=== PATIENT | female | born 1970 | race African-American/Black ===

== ENCOUNTER 2016-09-25 12:45 | Day surgery (SDC) | payer OTHER ==
[~2016-09-25 12:45] MED LIST: AMLODIPINE BESY10 MG PO; AMOX TR-K CLV1 EAC3 PO; B-COMPLEX WIT400 MCG PO; CALCITRIOL0.5 MCG PO; CEFTAZIDIME2 GM IV; CIPRO500 MG PO; ELIQUIS2.5 MG PO; ELIQUIS5 MG PO; FOLIC ACID1 MG PO; HYDREA500 MG PO; HYDROXYUREA500 MG PO; KADIAN30 MG PO; KEPPRA500 MG PO; LEVAQUIN500 MG PO; LOPRESSOR50 MG PO; METOPROLOL TART50 MG PO; NEPHRO-VITE,1 TABLET PO; NORVASC10 MG PO; OXYCODONE HCL; OXYCODONE HCL30 MG PO; OXYCONTIN20 MG PO; PROTONIX40 MG PO; RANITIDINE HCL150 MG PO; ROCALTROL0.5 MCG PO; ROXICODONE5 MG PO; SENSIPAR30 MG PO; TUMS X-STR300 MG PO; TUMS500 MG PO; VIBRAMYCIN100 MG PO; VITAMIN E1000 UNI1 PO; ZANTAC150 MG PO; ZOFRAN; ZOFRAN ODT8 MG PO; ZOFRAN8 MG PO
[2016-09-25] MEDS ORDERED: ZOFRAN8 MG PO (14:45)
[2016-09-25] MEDS ORDERED: KADIAN30 MG PO (14:46)
[2016-09-25] MEDS ORDERED: OXYCONTIN20 MG PO (14:47)
[2016-09-25 16:26] LABS: METH RESISTANT S AUREUS PCR NEGATIVE (NEGATIVE)
[2016-09-25 16:48] LABS: PROBE CHECK PASS; SPECIMEN PROCESSING CONTROL PASS
== END 2016-09-25 19:25 | disposition home or self-care (01) ==
LOC: CATH 12:45
PROVIDERS: Surgery
DX: T82.868A Thrombosis due to vascular prosthetic devices, implants and grafts, initial encounter (principal); Y83.2 Surgical operation with anastomosis, bypass or graft as the cause of abnormal reaction of the patient, or of later complication, without mention of misadventure at the time of the procedure; Z99.2 Dependence on renal dialysis; N18.6 End stage renal disease
CPT/HCPCS: 87641; C1725; C1757; C1769; C1874; C1894; C2628; J0690; J1644; J2250; J3010; S0020

== ENCOUNTER 2016-10-26 18:45 | Inpatient (IN) | payer OTHER ==
[~2016-10-26] VITALS: Ht 165.1 cm; Wt 57.4 kg
[2016-10-26 20:00] VITALS: BP 107/63
[2016-10-26 21:00] VITALS: BP 107/63
[2016-10-26 23:55] VITALS: BP 114/65
[2016-10-27 03:58] VITALS: BP 100/60
[2016-10-27 07:34] VITALS: BP 135/70
[2016-10-27 07:35] LABS: ANION GAP 11 MEQ/L (2-14); CHLORIDE 99 MEQ/L (99-109); GFR ESTIMATE (CALCULATED) 15 mL/min/; GLUCOSE 104 mg/dL (70-99); POTASSIUM 4.3 MEQ/L (3.7-5.4); SAMPLE HEMOLYSIS CHECK 0; SAMPLE ICTERIC CHECK 0; SAMPLE LIPEMIA CHECK 0; SODIUM 137 MEQ/L (136-147); UREA NITROGEN (BUN) 26 mg/dL (9-23)
[2016-10-27 07:57] LABS: EOSINOPHIL (%) 0.2 % (0-5); HEMATOCRIT 17.3 % (36.0-46.0); IMMATURE GRANULOCYTE (%) 0.3 % (0.0-0.7); IMMATURE GRANULOCYTE COUNT 0.1 K/uL; LYMPHOCYTE COUNT 1.7 K/uL (1.0-2.8); MCH 31.3 PG (29.0-34.0); MCHC 32.4 G/DL (30.0-36.0); MCV 96.6 FL (83-99); MEAN PLAT.VOLUME 10.3 uM^3 (9.5-12.4); MONOCYTE (%) 6.1 % (3-12); MONOCYTE COUNT 1.1 K/uL (0-0.8); NEUTROPHIL (%) 83.7 % (45-76); NEUTROPHIL COUNT 14.8 K/uL (1.8-6.4); NRBC (%) 0.3 /100 WBC (0-0); PLATELET COUNT 445 K/uL (156-360); RBC DIS.WIDTH-SD 74.2 % (39-53); RED BLOOD COUNT 1.79 M/uL (3.80-5.20); WHITE BLOOD COUNT 17.6 K/uL (4.1-10.2)
[2016-10-27 11:16] VITALS: BP 138/69
[2016-10-27] MEDS ORDERED: MARINOL2.5 M1 PO ×2 (15:33→15:36)
[2016-10-27 16:07] VITALS: BP 107/62
[2016-10-27 19:30] VITALS: BP 108/63
[2016-10-27 23:55] VITALS: BP 111/69
[2016-10-28] VITALS (9 sets, daily range): BP systolic 105–181; BP diastolic 61–85
[2016-10-28 08:42] LABS: EOSINOPHIL (%) 0.3 % (0-5); EOSINOPHIL COUNT 0.1 K/uL (0-0.3); IMMATURE GRANULOCYTE (%) 0.5 % (0.0-0.7); IMMATURE GRANULOCYTE COUNT 0.1 K/uL; LYMPHOCYTE COUNT 1.9 K/uL (1.0-2.8); MCH 32.3 PG (29.0-34.0); MCHC 34.4 G/DL (30.0-36.0); MCV 93.8 FL (83-99); MEAN PLAT.VOLUME 10.5 uM^3 (9.5-12.4); MONOCYTE (%) 4.9 % (3-12); MONOCYTE COUNT 0.8 K/uL (0-0.8); NEUTROPHIL (%) 82.6 % (45-76); NEUTROPHIL COUNT 13.6 K/uL (1.8-6.4); NRBC (%) 0.8 /100 WBC (0-0); PLATELET COUNT 430 K/uL (156-360); RBC DIS.WIDTH-CV 19.9 % (11.8-14.6); RBC DIS.WIDTH-SD 65.2 % (39-53); RED BLOOD COUNT 1.92 M/uL (3.80-5.20); WHITE BLOOD COUNT 16.4 K/uL (4.1-10.2)
[2016-10-28 08:43] LABS: ANION GAP 12 MEQ/L (2-14); CHLORIDE 97 MEQ/L (99-109); GFR ESTIMATE (CALCULATED) 11 mL/min/; GLUCOSE 126 mg/dL (70-99); POTASSIUM 3.8 MEQ/L (3.7-5.4); SAMPLE HEMOLYSIS CHECK 0; SAMPLE ICTERIC CHECK 0; SAMPLE LIPEMIA CHECK 0; SODIUM 133 MEQ/L (136-147); UREA NITROGEN (BUN) 40 mg/dL (9-23)
[2016-10-29 04:39] VITALS: BP 104/74
[2016-10-29 07:38] VITALS: BP 119/91
[2016-10-29 11:19] LABS: HEMATOCRIT 22.1 % (36.0-46.0); MCH 30.6 PG (29.0-34.0); MCHC 32.6 G/DL (30.0-36.0); RBC DIS.WIDTH-SD 62.1 % (39-53); WHITE BLOOD COUNT 14.5 K/uL (4.1-10.2)
[2016-10-29 11:20] LABS: RED BLOOD COUNT 2.35 M/uL (3.80-5.20)
[2016-10-29 11:28] LABS: ANION GAP 11 MEQ/L (2-14); CHLORIDE 97 MEQ/L (99-109); GFR ESTIMATE (CALCULATED) 13 mL/min/; GLUCOSE 125 mg/dL (70-99); POTASSIUM 3.9 MEQ/L (3.7-5.4); SAMPLE HEMOLYSIS CHECK 0; SAMPLE ICTERIC CHECK 0; SAMPLE LIPEMIA CHECK 0; SODIUM 132 MEQ/L (136-147); UREA NITROGEN (BUN) 31 mg/dL (9-23)
[2016-10-29 11:44] VITALS: BP 137/71
[2016-10-29 11:54] LABS: EOSINOPHIL (%) 0.2 % (0-5); HEMATOLOGY COMMENT 1 SMEAR COMPATIBLE; IMMATURE GRANULOCYTE (%) 0.6 % (0.0-0.7); IMMATURE GRANULOCYTE COUNT 0.1 K/uL; LYMPHOCYTE COUNT 1.2 K/uL (1.0-2.8); MEAN PLAT.VOLUME 10.3 uM^3 (9.5-12.4); MONOCYTE (%) 3.7 % (3-12); MONOCYTE COUNT 0.5 K/uL (0-0.8); NEUTROPHIL (%) 87.2 % (45-76); NEUTROPHIL COUNT 12.7 K/uL (1.8-6.4); NRBC (%) 1.1 /100 WBC (0-0); PLATELET COUNT 395 K/uL (156-360)
[2016-10-29 16:09] VITALS: BP 103/63
[2016-10-29 19:15] VITALS: BP 170/87
[2016-10-29 23:51] VITALS: BP 115/71
[2016-10-30 04:01] VITALS: BP 133/74
[2016-10-30 07:45] VITALS: BP 138/82
[2016-10-30 11:06] VITALS: BP 98/63
[2016-10-30 15:02] VITALS: BP 111/66
[2016-10-30 19:10] VITALS: BP 141/83
[2016-10-30 23:55] VITALS: BP 123/75
[2016-10-31 04:00] VITALS: BP 132/71
[2016-10-31 07:04] LABS: BASOPHIL COUNT 0.1 K/uL (0-0.1); EOSINOPHIL (%) 0.2 % (0-5); HEMATOCRIT 19.4 % (36.0-46.0); IMMATURE GRANULOCYTE (%) 0.5 % (0.0-0.7); IMMATURE GRANULOCYTE COUNT 0.1 K/uL; LYMPHOCYTE COUNT 1.4 K/uL (1.0-2.8); MCH 31.9 PG (29.0-34.0); MCV 93.7 FL (83-99); MEAN PLAT.VOLUME 10.7 uM^3 (9.5-12.4); MONOCYTE (%) 2.9 % (3-12); MONOCYTE COUNT 0.6 K/uL (0-0.8); NEUTROPHIL (%) 89.1 % (45-76); NEUTROPHIL COUNT 17.5 K/uL (1.8-6.4); NRBC (%) 0.3 /100 WBC (0-0); PLATELET COUNT 325 K/uL (156-360); RBC DIS.WIDTH-CV 19.3 % (11.8-14.6); RBC DIS.WIDTH-SD 63.1 % (39-53); RED BLOOD COUNT 2.07 M/uL (3.80-5.20)
[2016-10-31 07:05] LABS: WHITE BLOOD COUNT 19.6 K/uL (4.1-10.2)
[2016-10-31 07:14] LABS: ANION GAP 14 MEQ/L (2-14); CHLORIDE 98 MEQ/L (99-109); GFR ESTIMATE (CALCULATED) 7 mL/min/; GLUCOSE 127 mg/dL (70-99); POTASSIUM 4.1 MEQ/L (3.7-5.4); SAMPLE HEMOLYSIS CHECK 0; SAMPLE ICTERIC CHECK 0; SAMPLE LIPEMIA CHECK 0; SODIUM 131 MEQ/L (136-147)
[2016-10-31 07:15] LABS: UREA NITROGEN (BUN) 61 mg/dL (9-23)
[2016-10-31 08:00] VITALS: BP 120/73
[2016-10-31 08:34] LABS: HEMATOLOGY COMMENT 1 SMEAR COMPATIBLE; PLAT.SUFFICIENCY ADEQUATE; USER ID TLW
[2016-10-31 14:13] VITALS: BP 157/82
[2016-10-31 16:35] VITALS: BP 122/80
[2016-10-31 19:10] VITALS: BP 130/85
[2016-10-31 23:56] VITALS: BP 111/67
[2016-11-01 04:03] VITALS: BP 140/89
[2016-11-01 06:31] LABS: EOSINOPHIL (%) 0.5 % (0-5); EOSINOPHIL COUNT 0.1 K/uL (0-0.3); HEMATOCRIT 27.1 % (36.0-46.0); IMMATURE GRANULOCYTE (%) 0.3 % (0.0-0.7); LYMPHOCYTE COUNT 1.2 K/uL (1.0-2.8); MCH 30.4 PG (29.0-34.0); MCHC 32.8 G/DL (30.0-36.0); MCV 92.5 FL (83-99); MEAN PLAT.VOLUME 10.1 uM^3 (9.5-12.4); MONOCYTE (%) 4.9 % (3-12); MONOCYTE COUNT 0.6 K/uL (0-0.8); NEUTROPHIL (%) 83.8 % (45-76); NEUTROPHIL COUNT 10.1 K/uL (1.8-6.4); NRBC (%) 0.8 /100 WBC (0-0); PLATELET COUNT 316 K/uL (156-360); RBC DIS.WIDTH-CV 18.5 % (11.8-14.6); RBC DIS.WIDTH-SD 59.6 % (39-53); RED BLOOD COUNT 2.93 M/uL (3.80-5.20); WHITE BLOOD COUNT 12.1 K/uL (4.1-10.2)
[2016-11-01 06:56] LABS: ANION GAP 13 MEQ/L (2-14); CHLORIDE 98 MEQ/L (99-109); GFR ESTIMATE (CALCULATED) 12 mL/min/; POTASSIUM 3.9 MEQ/L (3.7-5.4); SAMPLE HEMOLYSIS CHECK 0; SAMPLE ICTERIC CHECK 0; SAMPLE LIPEMIA CHECK 0; SODIUM 134 MEQ/L (136-147); UREA NITROGEN (BUN) 36 mg/dL (9-23)
[2016-11-01 06:57] LABS: GLUCOSE 89 mg/dL (70-99)
[2016-11-01 07:38] VITALS: BP 142/93
[2016-11-01 11:25] VITALS: BP 116/79
[2016-11-01 16:35] VITALS: BP 132/81
[2016-11-01 19:15] VITALS: BP 151/87
[2016-11-01 23:30] VITALS: BP 137/85
[2016-11-02 03:00] VITALS: BP 131/79
[2016-11-02 06:46] VITALS: BP 131/86
[2016-11-02 12:14] VITALS: BP 141/92
[2016-11-02 15:15] VITALS: BP 157/94
[2016-11-02 20:25] VITALS: BP 135/73
[2016-11-03 00:01] VITALS: BP 131/74
[2016-11-03 04:45] VITALS: BP 140/80
[2016-11-03 08:33] LABS: HEMATOCRIT 23.1 % (36.0-46.0); MCH 31.5 PG (29.0-34.0); MCHC 33.8 G/DL (30.0-36.0); MCV 93.1 FL (83-99); MEAN PLAT.VOLUME 10.6 uM^3 (9.5-12.4); NRBC (%) 0.6 /100 WBC (0-0); PLATELET COUNT 286 K/uL (156-360); RBC DIS.WIDTH-SD 59.5 % (39-53); RED BLOOD COUNT 2.48 M/uL (3.80-5.20); WHITE BLOOD COUNT 9.6 K/uL (4.1-10.2)
[2016-11-03 08:53] LABS: ANION GAP 15 MEQ/L (2-14); CHLORIDE 100 MEQ/L (99-109); GFR ESTIMATE (CALCULATED) 7 mL/min/; POTASSIUM 3.6 MEQ/L (3.7-5.4); SAMPLE HEMOLYSIS CHECK 0; SAMPLE ICTERIC CHECK 0; SAMPLE LIPEMIA CHECK 0; SODIUM 135 MEQ/L (136-147)
[2016-11-03 08:54] LABS: GLUCOSE 135 mg/dL (70-99); UREA NITROGEN (BUN) 64 mg/dL (9-23)
[2016-11-03 09:21] LABS: EOSINOPHIL (%) 0 % (0-5); HEMATOLOGY COMMENT 1 REV; IMMATURE GRANULOCYTE (%) 0.2 % (0.0-0.7); LYMPHOCYTE COUNT 1.3 K/uL (1.0-2.8); MONOCYTE (%) 3.9 % (3-12); MONOCYTE COUNT 0.4 K/uL (0-0.8); NEUTROPHIL (%) 82.2 % (45-76); NEUTROPHIL COUNT 7.9 K/uL (1.8-6.4); USER ID NJR
[2016-11-03 12:45] VITALS: BP 146/75
[2016-11-03 16:50] VITALS: BP 121/72
[2016-11-03 22:38] VITALS: BP 133/82
[2016-11-04 08:17] LABS: NRBC (%) 0.6 /100 WBC (0-0)
[2016-11-04 08:23] LABS: ANION GAP 9 MEQ/L (2-14); CHLORIDE 98 MEQ/L (99-109); EOSINOPHIL (%) 0.8 % (0-5); EOSINOPHIL COUNT 0.1 K/uL (0-0.3); HEMATOCRIT 24.5 % (36.0-46.0); IMMATURE GRANULOCYTE (%) 0.3 % (0.0-0.7); LYMPHOCYTE COUNT 1.7 K/uL (1.0-2.8); MCH 30.9 PG (29.0-34.0); MCHC 33.1 G/DL (30.0-36.0); MCV 93.5 FL (83-99); MEAN PLAT.VOLUME 10.7 uM^3 (9.5-12.4); MONOCYTE (%) 9.5 % (3-12); MONOCYTE COUNT 0.6 K/uL (0-0.8); NEUTROPHIL (%) 62.5 % (45-76); NEUTROPHIL COUNT 4.1 K/uL (1.8-6.4); PLATELET COUNT 348 K/uL (156-360); POTASSIUM 3.7 MEQ/L (3.7-5.4); RBC DIS.WIDTH-CV 17.9 % (11.8-14.6); RBC DIS.WIDTH-SD 59.6 % (39-53); RED BLOOD COUNT 2.62 M/uL (3.80-5.20); SAMPLE HEMOLYSIS CHECK 0; SAMPLE ICTERIC CHECK 0; SAMPLE LIPEMIA CHECK 0; SODIUM 134 MEQ/L (136-147)
[2016-11-04 08:24] LABS: WHITE BLOOD COUNT 6.5 K/uL (4.1-10.2)
[2016-11-04 08:26] LABS: GFR ESTIMATE (CALCULATED) 13 mL/min/
[2016-11-04 08:31] LABS: GLUCOSE 82 mg/dL (70-99); UREA NITROGEN (BUN) 28 mg/dL (9-23)
[2016-11-04 15:35] VITALS: BP 106/67
[2016-11-04 23:32] VITALS: BP 143/88
[2016-11-05 07:08] VITALS: BP 142/87
[2016-11-05 15:37] VITALS: BP 143/94
[2016-11-05 22:39] VITALS: BP 132/84
[2016-11-06 07:20] VITALS: BP 124/71
[2016-11-06 16:50] VITALS: BP 152/89
[2016-11-06 19:03] LABS: NRBC (%) 0.3 /100 WBC (0-0)
[2016-11-06 19:22] LABS: ANION GAP 12 MEQ/L (2-14); CHLORIDE 100 MEQ/L (99-109); POTASSIUM 3.6 MEQ/L (3.7-5.4); SAMPLE HEMOLYSIS CHECK 0; SAMPLE ICTERIC CHECK 0; SAMPLE LIPEMIA CHECK 0; SODIUM 132 MEQ/L (136-147)
[2016-11-06 19:28] LABS: GFR ESTIMATE (CALCULATED) 9 mL/min/; GLUCOSE 122 mg/dL (70-99); UREA NITROGEN (BUN) 40 mg/dL (9-23)
[2016-11-06 19:35] LABS: HEMATOCRIT 22.5 % (36.0-46.0); HEMATOLOGY COMMENT 1 SMEAR COMPATIBLE; MCH 32.1 PG (29.0-34.0); MCHC 33.8 G/DL (30.0-36.0); MCV 94.9 FL (83-99); MEAN PLAT.VOLUME 10.3 uM^3 (9.5-12.4); PLATELET COUNT 345 K/uL (156-360); RBC DIS.WIDTH-CV 17.9 % (11.8-14.6); RBC DIS.WIDTH-SD 60.3 % (39-53); RED BLOOD COUNT 2.37 M/uL (3.80-5.20)
[2016-11-06 19:37] LABS: WHITE BLOOD COUNT 12.9 K/uL (4.1-10.2)
[2016-11-06 22:55] VITALS: BP 182/88
[2016-11-07 05:36] VITALS: BP 122/74
[2016-11-07 07:43] VITALS: BP 125/78
[2016-11-07 09:18] LABS: HEMATOCRIT 22.3 % (36.0-46.0); MCH 32.1 PG (29.0-34.0); MCHC 33.6 G/DL (30.0-36.0); MCV 95.3 FL (83-99); MEAN PLAT.VOLUME 10.7 uM^3 (9.5-12.4); NRBC (%) 0.2 /100 WBC (0-0); PLATELET COUNT 339 K/uL (156-360); RBC DIS.WIDTH-CV 18.2 % (11.8-14.6); RBC DIS.WIDTH-SD 61.1 % (39-53); RED BLOOD COUNT 2.34 M/uL (3.80-5.20); WHITE BLOOD COUNT 13.9 K/uL (4.1-10.2)
[2016-11-07 09:39] LABS: ANION GAP 14 MEQ/L (2-14); CHLORIDE 100 MEQ/L (99-109); GFR ESTIMATE (CALCULATED) 7 mL/min/; GLUCOSE 139 mg/dL (70-99); POTASSIUM 3.4 MEQ/L (3.7-5.4); SAMPLE HEMOLYSIS CHECK 0; SAMPLE ICTERIC CHECK 0; SAMPLE LIPEMIA CHECK 0; SODIUM 134 MEQ/L (136-147); UREA NITROGEN (BUN) 46 mg/dL (9-23)
[2016-11-07 09:41] LABS: BASOPHIL COUNT 0.1 K/uL (0-0.1); EOSINOPHIL (%) 0.6 % (0-5); EOSINOPHIL COUNT 0.1 K/uL (0-0.3); IMMATURE GRANULOCYTE (%) 0.4 % (0.0-0.7); IMMATURE GRANULOCYTE COUNT 0.1 K/uL; LYMPHOCYTE COUNT 1.5 K/uL (1.0-2.8); MONOCYTE (%) 4.1 % (3-12); MONOCYTE COUNT 0.6 K/uL (0-0.8); NEUTROPHIL (%) 83.5 % (45-76); NEUTROPHIL COUNT 11.6 K/uL (1.8-6.4)
[2016-11-07 10:57] LABS: HEMATOLOGY COMMENT 1 SMEAR COMPATIBLE; USER ID BLP
[2016-11-07 17:12] VITALS: BP 125/77
[2016-11-07 23:28] VITALS: BP 145/89
[2016-11-08 06:51] VITALS: BP 135/87
[2016-11-08 16:55] VITALS: BP 155/93
[2016-11-09] VITALS (11 sets, daily range): BP systolic 138–160; BP diastolic 86–98
[2016-11-09 07:36] LABS: ANION GAP 14 MEQ/L (2-14); CHLORIDE 101 MEQ/L (99-109); GFR ESTIMATE (CALCULATED) 8 mL/min/; SAMPLE HEMOLYSIS CHECK 0; SAMPLE ICTERIC CHECK 0; SAMPLE LIPEMIA CHECK 0; SODIUM 136 MEQ/L (136-147); UREA NITROGEN (BUN) 39 mg/dL (9-23)
[2016-11-09 07:37] LABS: GLUCOSE 95 mg/dL (70-99); POTASSIUM 4.3 MEQ/L (3.7-5.4)
[2016-11-09 07:54] LABS: BASOPHIL COUNT 0.1 K/uL (0-0.1); EOSINOPHIL (%) 1.2 % (0-5); EOSINOPHIL COUNT 0.1 K/uL (0-0.3); HEMATOCRIT 20.5 % (36.0-46.0); IMMATURE GRANULOCYTE (%) 0.3 % (0.0-0.7); LYMPHOCYTE COUNT 1.9 K/uL (1.0-2.8); MCH 31.2 PG (29.0-34.0); MCHC 33.2 G/DL (30.0-36.0); MEAN PLAT.VOLUME 10.3 uM^3 (9.5-12.4); MONOCYTE (%) 5.8 % (3-12); MONOCYTE COUNT 0.6 K/uL (0-0.8); NEUTROPHIL (%) 73.3 % (45-76); NEUTROPHIL COUNT 7.5 K/uL (1.8-6.4); NRBC (%) 0.4 /100 WBC (0-0); PLATELET COUNT 362 K/uL (156-360); RBC DIS.WIDTH-CV 18.1 % (11.8-14.6); RED BLOOD COUNT 2.18 M/uL (3.80-5.20); WHITE BLOOD COUNT 10.2 K/uL (4.1-10.2)
[2016-11-09 12:56] LABS: IMM.RETIC FRACTION 12.5 % (3-19); RETIC HGB EQUIVALENT 36.7 (28-36); RETICULOCYTE COUNT 2.4 % (0.5-1.8)
[2016-11-09 14:52] LABS: IRON 52 MCG/DL (35-150)
[2016-11-09 15:08] LABS: FERRITIN 2368 NG/ML (10-291)
[2016-11-09 18:01] LABS: HEMATOCRIT 21.2 % (36.0-46.0); MCH 31.5 PG (29.0-34.0); MCV 95.5 FL (83-99); MEAN PLAT.VOLUME 10.6 uM^3 (9.5-12.4); NRBC (%) 0.4 /100 WBC (0-0); PLATELET COUNT 359 K/uL (156-360); RBC DIS.WIDTH-CV 17.4 % (11.8-14.6); RBC DIS.WIDTH-SD 59.7 % (39-53); RED BLOOD COUNT 2.22 M/uL (3.80-5.20); WHITE BLOOD COUNT 12.2 K/uL (4.1-10.2)
[2016-11-10 01:03] VITALS: BP 144/88
[2016-11-10 06:50] VITALS: BP 150/74
[2016-11-10 07:10] LABS: BASOPHIL COUNT 0.1 K/uL (0-0.1); EOSINOPHIL (%) 1.1 % (0-5); EOSINOPHIL COUNT 0.1 K/uL (0-0.3); HEMATOCRIT 28.5 % (36.0-46.0); IMMATURE GRANULOCYTE (%) 0.7 % (0.0-0.7); IMMATURE GRANULOCYTE COUNT 0.1 K/uL; LYMPHOCYTE COUNT 2.2 K/uL (1.0-2.8); MCH 30.3 PG (29.0-34.0); MCHC 32.3 G/DL (30.0-36.0); MCV 93.8 FL (83-99); MEAN PLAT.VOLUME 10.8 uM^3 (9.5-12.4); MONOCYTE (%) 7.5 % (3-12); MONOCYTE COUNT 0.8 K/uL (0-0.8); NEUTROPHIL (%) 67.9 % (45-76); NRBC (%) 0.5 /100 WBC (0-0); PLATELET COUNT 368 K/uL (156-360); RBC DIS.WIDTH-CV 17.2 % (11.8-14.6); RBC DIS.WIDTH-SD 57.8 % (39-53); WHITE BLOOD COUNT 10.3 K/uL (4.1-10.2)
[2016-11-10 07:12] LABS: RED BLOOD COUNT 3.04 M/uL (3.80-5.20)
[2016-11-10 07:26] VITALS: BP 162/109
[2016-11-10 08:06] LABS: ALKALINE PHOSPHATASE 290 IU/L (3-129); AMYLASE 80 IU/L (1-118); ANION GAP 18 MEQ/L (2-14); CHLORIDE 100 MEQ/L (99-109); DIRECT BILIRUBIN 0.5 mg/dL (0.0-0.3); GFR ESTIMATE (CALCULATED) 7 mL/min/; GLUCOSE 99 mg/dL (70-99); LIPASE 57 U/L (1.0-51.0); POTASSIUM 4.6 MEQ/L (3.7-5.4); SAMPLE HEMOLYSIS CHECK 0; SAMPLE ICTERIC CHECK 0; SAMPLE LIPEMIA CHECK 0; SODIUM 136 MEQ/L (136-147); TOTAL BILIRUBIN 1.4 MG/DL (0.0-1.0); UREA NITROGEN (BUN) 50 mg/dL (9-23)
[2016-11-10 15:48] VITALS: BP 149/90
[2016-11-10 17:56] LABS: HEMATOCRIT 24.3 % (36.0-46.0); MCH 30.7 PG (29.0-34.0); MCHC 33.7 G/DL (30.0-36.0); MEAN PLAT.VOLUME 10.7 uM^3 (9.5-12.4); NRBC (%) 0.4 /100 WBC (0-0); PLATELET COUNT 346 K/uL (156-360); RBC DIS.WIDTH-CV 16.8 % (11.8-14.6); RBC DIS.WIDTH-SD 55.2 % (39-53); RED BLOOD COUNT 2.67 M/uL (3.80-5.20); WHITE BLOOD COUNT 10.6 K/uL (4.1-10.2)
[2016-11-10 20:16] VITALS: BP 141/86
[2016-11-10 23:13] VITALS: BP 131/84
[2016-11-11 06:20] VITALS: BP 149/89
[2016-11-11 06:37] LABS: BASOPHIL COUNT 0.1 K/uL (0-0.1); EOSINOPHIL (%) 1.4 % (0-5); EOSINOPHIL COUNT 0.2 K/uL (0-0.3); HEMATOCRIT 24.2 % (36.0-46.0); IMMATURE GRANULOCYTE (%) 0.5 % (0.0-0.7); IMMATURE GRANULOCYTE COUNT 0.1 K/uL; INSTRUMENT ABS NEUTROPHIL CT 8.2 K/uL; LYMPHOCYTE COUNT 1.9 K/uL (1.0-2.8); MCH 29.9 PG (29.0-34.0); MCHC 32.2 G/DL (30.0-36.0); MCV 92.7 FL (83-99); MEAN PLAT.VOLUME 10.6 uM^3 (9.5-12.4); MONOCYTE (%) 7.1 % (3-12); MONOCYTE COUNT 0.8 K/uL (0-0.8); NEUTROPHIL (%) 73.6 % (45-76); NEUTROPHIL COUNT 8.2 K/uL (1.8-6.4); NRBC (%) 0.5 /100 WBC (0-0); PLATELET COUNT 348 K/uL (156-360); RBC DIS.WIDTH-CV 17.2 % (11.8-14.6); RBC DIS.WIDTH-SD 57.4 % (39-53); RED BLOOD COUNT 2.61 M/uL (3.80-5.20); WHITE BLOOD COUNT 11.1 K/uL (4.1-10.2)
[2016-11-11 06:59] LABS: ANION GAP 13 MEQ/L (2-14); CHLORIDE 97 MEQ/L (99-109); GLUCOSE 93 mg/dL (70-99); POTASSIUM 4.5 MEQ/L (3.7-5.4); SAMPLE HEMOLYSIS CHECK 0; SAMPLE ICTERIC CHECK 0; SAMPLE LIPEMIA CHECK 0; SODIUM 136 MEQ/L (136-147)
[2016-11-11 07:03] LABS: GFR ESTIMATE (CALCULATED) 13 mL/min/; UREA NITROGEN (BUN) 24 mg/dL (9-23)
[2016-11-11 08:05] VITALS: BP 168/96
[2016-11-11 18:42] LABS: HEMATOCRIT 22.5 % (36.0-46.0); MCH 31.1 PG (29.0-34.0); MCHC 32.4 G/DL (30.0-36.0); MCV 95.7 FL (83-99); MEAN PLAT.VOLUME 10.3 uM^3 (9.5-12.4); NRBC (%) 0.3 /100 WBC (0-0); PLATELET COUNT 331 K/uL (156-360); RBC DIS.WIDTH-CV 17.5 % (11.8-14.6); RED BLOOD COUNT 2.35 M/uL (3.80-5.20); WHITE BLOOD COUNT 13.8 K/uL (4.1-10.2)
[2016-11-11 23:00] VITALS: BP 178/96
[2016-11-12] VITALS (9 sets, daily range): BP systolic 124–176; BP diastolic 62–104
[2016-11-12 07:47] LABS: BASOPHIL COUNT 0.1 K/uL (0-0.1); EOSINOPHIL (%) 0.6 % (0-5); EOSINOPHIL COUNT 0.1 K/uL (0-0.3); HEMATOCRIT 20.4 % (36.0-46.0); IMMATURE GRANULOCYTE (%) 0.7 % (0.0-0.7); IMMATURE GRANULOCYTE COUNT 0.1 K/uL; INSTRUMENT ABS NEUTROPHIL CT 7.7 K/uL; LYMPHOCYTE COUNT 1.6 K/uL (1.0-2.8); MCH 30.7 PG (29.0-34.0); MCHC 32.4 G/DL (30.0-36.0); MCV 94.9 FL (83-99); MONOCYTE (%) 9.4 % (3-12); NEUTROPHIL (%) 73.5 % (45-76); NEUTROPHIL COUNT 7.7 K/uL (1.8-6.4); NRBC (%) 0.6 /100 WBC (0-0); PLATELET COUNT 357 K/uL (156-360); RBC DIS.WIDTH-CV 17.5 % (11.8-14.6); RBC DIS.WIDTH-SD 58.6 % (39-53); RED BLOOD COUNT 2.15 M/uL (3.80-5.20); WHITE BLOOD COUNT 10.5 K/uL (4.1-10.2)
[2016-11-12 07:58] LABS: ANION GAP 12 MEQ/L (2-14); CHLORIDE 98 MEQ/L (99-109); GFR ESTIMATE (CALCULATED) 9 mL/min/; GLUCOSE 109 mg/dL (70-99); POTASSIUM 4.5 MEQ/L (3.7-5.4); SAMPLE HEMOLYSIS CHECK 0; SAMPLE ICTERIC CHECK 0; SAMPLE LIPEMIA CHECK 0; SODIUM 134 MEQ/L (136-147); UREA NITROGEN (BUN) 36 mg/dL (9-23)
[2016-11-13 06:40] LABS: HEMATOCRIT 22.8 % (36.0-46.0); MCH 30.5 PG (29.0-34.0); MCV 95.4 FL (83-99); MEAN PLAT.VOLUME 10.8 uM^3 (9.5-12.4); NRBC (%) 1.4 /100 WBC (0-0); PLATELET COUNT 399 K/uL (156-360); RBC DIS.WIDTH-SD 57.7 % (39-53); RED BLOOD COUNT 2.39 M/uL (3.80-5.20); WHITE BLOOD COUNT 13.2 K/uL (4.1-10.2)
[2016-11-13 08:02] VITALS: BP 134/87
[2016-11-13 10:23] LABS: ANION GAP 16 MEQ/L (2-14); CHLORIDE 96 MEQ/L (99-109); POTASSIUM 3.8 MEQ/L (3.7-5.4); SAMPLE HEMOLYSIS CHECK 0; SAMPLE ICTERIC CHECK 0; SAMPLE LIPEMIA CHECK 0; SODIUM 132 MEQ/L (136-147)
[2016-11-13 10:32] LABS: GFR ESTIMATE (CALCULATED) 7 mL/min/; GLUCOSE 126 mg/dL (70-99); UREA NITROGEN (BUN) 44 mg/dL (9-23)
[2016-11-13 15:46] VITALS: BP 140/83
[2016-11-13 23:06] VITALS: BP 138/83
[2016-11-14 06:35] VITALS: BP 169/93
[2016-11-14 06:45] LABS: BASOPHIL COUNT 0.1 K/uL (0-0.1); EOSINOPHIL (%) 1.4 % (0-5); EOSINOPHIL COUNT 0.2 K/uL (0-0.3); HEMATOCRIT 22.9 % (36.0-46.0); IMMATURE GRANULOCYTE (%) 1.2 % (0.0-0.7); IMMATURE GRANULOCYTE COUNT 0.1 K/uL; INSTRUMENT ABS NEUTROPHIL CT 8.1 K/uL; LYMPHOCYTE COUNT 1.7 K/uL (1.0-2.8); MCH 30.3 PG (29.0-34.0); MCHC 32.3 G/DL (30.0-36.0); MCV 93.9 FL (83-99); MEAN PLAT.VOLUME 10.5 uM^3 (9.5-12.4); MONOCYTE (%) 9.2 % (3-12); NEUTROPHIL (%) 72.4 % (45-76); NEUTROPHIL COUNT 8.1 K/uL (1.8-6.4); NRBC (%) 5.9 /100 WBC (0-0); PLATELET COUNT 357 K/uL (156-360); RBC DIS.WIDTH-SD 59.7 % (39-53); RED BLOOD COUNT 2.44 M/uL (3.80-5.20); WHITE BLOOD COUNT 11.1 K/uL (4.1-10.2)
[2016-11-14 07:16] LABS: ANION GAP 13 MEQ/L (2-14); CHLORIDE 97 MEQ/L (99-109); GFR ESTIMATE (CALCULATED) 11 mL/min/; POTASSIUM 3.9 MEQ/L (3.7-5.4); SAMPLE HEMOLYSIS CHECK 0; SAMPLE ICTERIC CHECK 0; SAMPLE LIPEMIA CHECK 0; SODIUM 134 MEQ/L (136-147); UREA NITROGEN (BUN) 25 mg/dL (9-23)
[2016-11-14 07:28] LABS: GLUCOSE 89 mg/dL (70-99)
[2016-11-14 07:46] VITALS: BP 154/78
[2016-11-14 21:07] LABS: AP Bone Isoenzyme 22 % (28-66); AP Intestine Isoenzyme 0 % (1-24); AP Liver Isoenzyme 49 % (25-69); AP Macrohepatic Isoenzyme 29 % (<=0); AP Placental Isoenzyme 0 % (<=0); Alkaline Phosphatase, Total 273 U/L (33-115)
[2016-11-14 22:58] VITALS: BP 156/82
[2016-11-15 07:27] VITALS: BP 159/94
[2016-11-15 11:57] LABS: POC NON-PRINT COM 1 ND
[2016-11-16 00:22] VITALS: BP 110/63
[2016-11-16 06:51] VITALS: BP 163/84
[2016-11-16 07:12] LABS: BASOPHIL COUNT 0.1 K/uL (0-0.1); EOSINOPHIL (%) 1.2 % (0-5); EOSINOPHIL COUNT 0.1 K/uL (0-0.3); HEMATOCRIT 22.5 % (36.0-46.0); IMMATURE GRANULOCYTE (%) 1.4 % (0.0-0.7); IMMATURE GRANULOCYTE COUNT 0.2 K/uL; LYMPHOCYTE COUNT 2.2 K/uL (1.0-2.8); MCH 30.1 PG (29.0-34.0); MCV 94.1 FL (83-99); MEAN PLAT.VOLUME 10.5 uM^3 (9.5-12.4); MONOCYTE (%) 14.6 % (3-12); MONOCYTE COUNT 1.6 K/uL (0-0.8); NEUTROPHIL (%) 62.4 % (45-76); NRBC (%) 13.5 /100 WBC (0-0); PLATELET COUNT 369 K/uL (156-360); RBC DIS.WIDTH-CV 18.1 % (11.8-14.6); RBC DIS.WIDTH-SD 61.2 % (39-53); RED BLOOD COUNT 2.39 M/uL (3.80-5.20); WHITE BLOOD COUNT 11.2 K/uL (4.1-10.2)
[2016-11-16 09:38] LABS: ANION GAP 17 MEQ/L (2-14); CHLORIDE 96 MEQ/L (99-109); POTASSIUM 4.5 MEQ/L (3.7-5.4); SAMPLE HEMOLYSIS CHECK 0; SAMPLE ICTERIC CHECK 0; SAMPLE LIPEMIA CHECK 0; SODIUM 132 MEQ/L (136-147)
[2016-11-16 09:48] LABS: GLUCOSE 97 mg/dL (70-99)
[2016-11-16 09:49] LABS: GFR ESTIMATE (CALCULATED) 7 mL/min/; UREA NITROGEN (BUN) 47 mg/dL (9-23)
[2016-11-16 15:52] VITALS: BP 111/67
[2016-11-16 23:09] VITALS: BP 106/62
[2016-11-17 06:37] VITALS: BP 107/61
[2016-11-17 14:59] VITALS: BP 115/67
[2016-11-17 23:14] VITALS: BP 128/70
[2016-11-18 09:22] LABS: EOSINOPHIL (%) 0.8 % (0-5); EOSINOPHIL COUNT 0.1 K/uL (0-0.3); HEMATOCRIT 21.4 % (36.0-46.0); IMMATURE GRANULOCYTE (%) 1.9 % (0.0-0.7); IMMATURE GRANULOCYTE COUNT 0.2 K/uL; LYMPHOCYTE COUNT 1.6 K/uL (1.0-2.8); MCH 31.3 PG (29.0-34.0); MCHC 32.7 G/DL (30.0-36.0); MCV 95.5 FL (83-99); MEAN PLAT.VOLUME 10.5 uM^3 (9.5-12.4); MONOCYTE (%) 12.7 % (3-12); MONOCYTE COUNT 1.3 K/uL (0-0.8); NEUTROPHIL (%) 68.8 % (45-76); NRBC (%) 26.3 /100 WBC (0-0); PLATELET COUNT 374 K/uL (156-360); RBC DIS.WIDTH-CV 19.1 % (11.8-14.6); RBC DIS.WIDTH-SD 60.6 % (39-53); RED BLOOD COUNT 2.24 M/uL (3.80-5.20); WHITE BLOOD COUNT 10.2 K/uL (4.1-10.2)
[2016-11-18 09:57] LABS: ANION GAP 14 MEQ/L (2-14); CHLORIDE 98 MEQ/L (99-109); GFR ESTIMATE (CALCULATED) 7 mL/min/; GLUCOSE 136 mg/dL (70-99); POTASSIUM 3.5 MEQ/L (3.7-5.4); SAMPLE HEMOLYSIS CHECK 0; SAMPLE ICTERIC CHECK 0; SAMPLE LIPEMIA CHECK 0; SODIUM 132 MEQ/L (136-147); UREA NITROGEN (BUN) 40 mg/dL (9-23)
[2016-11-18 14:06] VITALS: BP 129/76
[2016-11-18 15:26] VITALS: BP 113/66
[2016-11-18 22:32] VITALS: BP 116/70
[2016-11-19 07:47] VITALS: BP 118/62
[2016-11-19 08:13] LABS: MCH 31.8 PG (29.0-34.0); MCV 96.2 FL (83-99); MEAN PLAT.VOLUME 10.5 uM^3 (9.5-12.4); NRBC (%) 27.5 /100 WBC (0-0); PLATELET COUNT 370 K/uL (156-360); RBC DIS.WIDTH-CV 20.6 % (11.8-14.6); RBC DIS.WIDTH-SD 63.7 % (39-53); RED BLOOD COUNT 2.39 M/uL (3.80-5.20); WHITE BLOOD COUNT 11.8 K/uL (4.1-10.2)
[2016-11-19 16:50] VITALS: BP 120/72
[2016-11-19 22:35] VITALS: BP 130/77
[2016-11-20 07:05] VITALS: BP 127/75
[2016-11-20 08:56] LABS: HEMATOCRIT 23.5 % (36.0-46.0); MCH 32.2 PG (29.0-34.0); MCHC 33.2 G/DL (30.0-36.0); MCV 97.1 FL (83-99); MEAN PLAT.VOLUME 10.1 uM^3 (9.5-12.4); NRBC (%) 32.9 /100 WBC (0-0); PLATELET COUNT 406 K/uL (156-360); RBC DIS.WIDTH-CV 21.3 % (11.8-14.6); RBC DIS.WIDTH-SD 68.8 % (39-53); RED BLOOD COUNT 2.42 M/uL (3.80-5.20); WHITE BLOOD COUNT 9.4 K/uL (4.1-10.2)
== END 2016-11-20 17:19 | disposition home or self-care (01) | DRG 907 ==
LOC: 4EAST 18:45 → 5EAST 20:27 → 4EAST 20:27 → 5EAST 11-03 15:18
PROVIDERS: Internal Medicine Nephrology; Physician Assistant Surgical; Specialist; Surgery; Thoracic Surgery (Cardiothoracic Vascular Surgery)
PROC: 05PY0JZ Removal of Synthetic Substitute from Upper Vein, Open Approach (ICD-10-PCS; principal; 2016-11-02)
PROC: 03C83ZZ Extirpation of Matter from Left Brachial Artery, Percutaneous Approach (ICD-10-PCS; principal; 2016-11-02)
PROC: B44FZZ3 Ultrasonography of Right Lower Extremity Arteries, Intravascular (ICD-10-PCS; 2016-11-10)
PROC: B548ZZA Ultrasonography of Superior Vena Cava, Guidance (ICD-10-PCS; 2016-11-10)
PROC: 02HV33Z Insertion of Infusion Device into Superior Vena Cava, Percutaneous Approach (ICD-10-PCS; 2016-11-10)
PROC: 04HK33Z Insertion of Infusion Device into Right Femoral Artery, Percutaneous Approach (ICD-10-PCS; 2016-11-10)
PROC: 031 Upper Arteries, Bypass (ICD-10-PCS; 2016-11-10)
PROC: 5A1D60Z (ICD-10-PCS; 2016-11-10)
PROC: 30233N1 Transfusion of Nonautologous Red Blood Cells into Peripheral Vein, Percutaneous Approach (ICD-10-PCS; 2016-11-13)
PROC: 03763ZZ Dilation of Left Axillary Artery, Percutaneous Approach (ICD-10-PCS; 2016-11-14)
DX: T85.71XA Infection and inflammatory reaction due to peritoneal dialysis catheter, initial encounter (principal); T82.868A Thrombosis due to vascular prosthetic devices, implants and grafts, initial encounter; R78.81 Bacteremia; N18.6 End stage renal disease; D57.00 Hb-SS disease with crisis, unspecified; I12.0 Hypertensive chronic kidney disease with stage 5 chronic kidney disease or end stage renal disease; D63.1 Anemia in chronic kidney disease; Z90.49 Acquired absence of other specified parts of digestive tract; D72.829 Elevated white blood cell count, unspecified; B96.5 Pseudomonas (aeruginosa) (mallei) (pseudomallei) as the cause of diseases classified elsewhere
CPT/HCPCS: 71020; 74176; 78102; 78315; 78805; 78999; 80048; 80069; 80076; 82150; 82272; 82607; 82728; 82746; 82948; 83540; 83690; 84075 90; 84080 90; 84466; 84702; 85025; 85027; 85045; 86850; 86900; 86901; 86905; 86920; 87040; 87077; 87177; 87186; 87340; 87493; 87506; 87801; 93306; 93931; 93971; 94799; A9503; A9541; A9570; C1725; C1757; C1768; C1769; C1894; C2628; J0131; J0690; J0881; J1100; J1170; J1644; J2250; J2270; J2405; J2543; J2720; J3010; J7050; P9040; S0020

== ENCOUNTER 2016-11-27 22:16 | Inpatient (IN) | payer BC, OTHER ==
[~2016-11-27] VITALS: Ht 165.1 cm; Wt 54.7 kg
[~2016-11-27 22:16] MED LIST changes: +MARINOL2.5 M1 PO
[2016-11-28 00:33] LABS: CHLORIDE 98 mEq/L (99-109); SODIUM 131 mEq/L (136-147)
[2016-11-28 00:35] LABS: GLUCOSE 96 mg/dL (70-99)
[2016-11-28 00:37] LABS: ANION GAP 16 MEQ/L (2-14)
[2016-11-28 00:39] LABS: GFR ESTIMATE (CALCULATED) 8 mL/min/
[2016-11-28 00:40] LABS: UREA NITROGEN (BUN) 54 mg/dL (9-23)
[2016-11-28 00:44] LABS: TROP-I INTERPRETATION NEGATIVE; TROPONIN-I < 0.01 ng/mL (0.0-0.30)
[2016-11-28 01:20] LABS: POTASSIUM 6.5 mEq/L (3.7-5.4)
[2016-11-28 02:28] LABS: HEMATOCRIT 23.5 % (36.0-46.0); MCH 33.9 PG (29.0-34.0); MCHC 33.6 G/DL (30.0-36.0); MCV 100.9 FL (83-99); MEAN PLAT.VOLUME 10.1 uM^3 (9.5-12.4); NRBC (%) 5.5 /100 WBC (0-0); PLATELET COUNT 311 K/uL (156-360); RBC DIS.WIDTH-SD 83.5 % (39-53); RED BLOOD COUNT 2.33 M/uL (3.80-5.20); WHITE BLOOD COUNT 10.9 K/uL (4.1-10.2)
[2016-11-28 02:29] LABS: CREATININE 8.8 mg/dL (0.6-1.3); POTASSIUM 5.7 mEq/L (3.7-5.4)
[2016-11-28 03:39] LABS: EOSINOPHIL (%) 0.3 % (0-5); IMM.RETIC FRACTION 16.1 % (3-19); IMMATURE GRANULOCYTE (%) 0.7 % (0.0-0.7); IMMATURE GRANULOCYTE COUNT 0.1 K/uL; INSTRUMENT ABS NEUTROPHIL CT 7.8 K/uL; LYMPHOCYTE COUNT 2.1 K/uL (1.0-2.8); MONOCYTE (%) 8.6 % (3-12); MONOCYTE COUNT 0.9 K/uL (0-0.8); NEUTROPHIL (%) 71.2 % (45-76); NEUTROPHIL COUNT 7.8 K/uL (1.8-6.4); RETIC HGB EQUIVALENT 35.8 (28-36); RETICULOCYTE COUNT 17.6 % (0.5-1.8)
[2016-11-28 05:34] LABS: POTASSIUM 5.5 mEq/L (3.7-5.4)
[2016-11-28] MEDS ORDERED: ELIQUIS5 MG PO (08:50)
[2016-11-28 13:14] VITALS: BP 118/71
[2016-11-28 14:51] LABS: TROP-I INTERPRETATION NEGATIVE; TROPONIN-I 0.02 ng/mL (0.0-0.30)
[2016-11-28 16:07] VITALS: BP 113/67
[2016-11-28 19:38] VITALS: BP 112/71
[2016-11-28 23:38] VITALS: BP 140/76
[2016-11-29 04:01] VITALS: BP 113/69
[2016-11-29 07:47] VITALS: BP 116/64
[2016-11-29 09:33] LABS: MCH 32.8 PG (29.0-34.0); MCHC 32.6 G/DL (30.0-36.0); MCV 100.4 FL (83-99); MEAN PLAT.VOLUME 10.1 uM^3 (9.5-12.4); NRBC (%) 3.5 /100 WBC (0-0); PLATELET COUNT 279 K/uL (156-360); RBC DIS.WIDTH-CV 23.1 % (11.8-14.6); RED BLOOD COUNT 2.29 M/uL (3.80-5.20); WHITE BLOOD COUNT 8.3 K/uL (4.1-10.2)
[2016-11-29 11:14] LABS: ANION GAP 15 MEQ/L (2-14); CHLORIDE 100 MEQ/L (99-109); GFR ESTIMATE (CALCULATED) 13 mL/min/; GLUCOSE 109 mg/dL (70-99); POTASSIUM 4.7 MEQ/L (3.7-5.4); SAMPLE HEMOLYSIS CHECK 0; SAMPLE ICTERIC CHECK 0; SAMPLE LIPEMIA CHECK 0; SODIUM 137 MEQ/L (136-147); UREA NITROGEN (BUN) 38 mg/dL (9-23)
[2016-11-29 12:22] VITALS: BP 118/68
[2016-11-29 16:56] VITALS: BP 118/72
[2016-11-29 19:40] VITALS: BP 125/78
[2016-11-29 23:20] VITALS: BP 114/64
[2016-11-30 04:07] VITALS: BP 129/78
[2016-11-30 09:02] LABS: BASOPHIL COUNT 0.1 K/uL (0-0.1); EOSINOPHIL (%) 0.1 % (0-5); HEMATOCRIT 22.2 % (36.0-46.0); IMMATURE GRANULOCYTE (%) 0.5 % (0.0-0.7); INSTRUMENT ABS NEUTROPHIL CT 5.7 K/uL; LYMPHOCYTE COUNT 1.8 K/uL (1.0-2.8); MCH 32.2 PG (29.0-34.0); MCHC 32.9 G/DL (30.0-36.0); MCV 97.8 FL (83-99); MEAN PLAT.VOLUME 10.9 uM^3 (9.5-12.4); MONOCYTE (%) 10.7 % (3-12); MONOCYTE COUNT 0.9 K/uL (0-0.8); NEUTROPHIL (%) 66.6 % (45-76); NEUTROPHIL COUNT 5.7 K/uL (1.8-6.4); NRBC (%) 3.8 /100 WBC (0-0); PLATELET COUNT 295 K/uL (156-360); RBC DIS.WIDTH-CV 22.1 % (11.8-14.6); RBC DIS.WIDTH-SD 76.7 % (39-53); RED BLOOD COUNT 2.27 M/uL (3.80-5.20); WHITE BLOOD COUNT 8.6 K/uL (4.1-10.2)
[2016-11-30 09:29] LABS: ANION GAP 16 MEQ/L (2-14); CHLORIDE 98 MEQ/L (99-109); GFR ESTIMATE (CALCULATED) 9 mL/min/; GLUCOSE 118 mg/dL (70-99); POTASSIUM 5.2 MEQ/L (3.7-5.4); SAMPLE HEMOLYSIS CHECK 0; SAMPLE ICTERIC CHECK 0; SAMPLE LIPEMIA CHECK 0; SODIUM 133 MEQ/L (136-147); UREA NITROGEN (BUN) 51 mg/dL (9-23)
[2016-11-30 10:35] VITALS: BP 163/78
[2016-11-30 12:30] VITALS: BP 147/80
[2016-11-30 16:10] VITALS: BP 115/69
[2016-11-30 21:10] VITALS: BP 124/66
[2016-12-01 01:20] VITALS: BP 129/77
[2016-12-01 03:19] VITALS: BP 110/58
[2016-12-01 07:06] LABS: ANION GAP 13 MEQ/L (2-14); CHLORIDE 98 MEQ/L (99-109); GFR ESTIMATE (CALCULATED) 13 mL/min/; GLUCOSE 104 mg/dL (70-99); POTASSIUM 4.2 MEQ/L (3.7-5.4); SAMPLE HEMOLYSIS CHECK 0; SAMPLE ICTERIC CHECK 0; SAMPLE LIPEMIA CHECK 0; SODIUM 135 MEQ/L (136-147); UREA NITROGEN (BUN) 33 mg/dL (9-23)
[2016-12-01 07:12] LABS: HEMATOCRIT 21.2 % (36.0-46.0); MCH 32.4 PG (29.0-34.0); MCV 98.1 FL (83-99); MEAN PLAT.VOLUME 10.6 uM^3 (9.5-12.4); NRBC (%) 4.3 /100 WBC (0-0); PLATELET COUNT 317 K/uL (156-360); RBC DIS.WIDTH-CV 22.2 % (11.8-14.6); RBC DIS.WIDTH-SD 75.6 % (39-53); RED BLOOD COUNT 2.16 M/uL (3.80-5.20); WHITE BLOOD COUNT 9.8 K/uL (4.1-10.2)
[2016-12-01 15:25] VITALS: BP 151/84
[2016-12-01 19:33] VITALS: BP 124/72
[2016-12-01 23:29] VITALS: BP 121/76
[2016-12-02 07:03] VITALS: BP 130/84
[2016-12-02 08:21] LABS: BASOPHIL COUNT 0.1 K/uL (0-0.1); EOSINOPHIL (%) 0.4 % (0-5); EOSINOPHIL COUNT 0.1 K/uL (0-0.3); HEMATOCRIT 20.6 % (36.0-46.0); IMMATURE GRANULOCYTE (%) 0.8 % (0.0-0.7); IMMATURE GRANULOCYTE COUNT 0.1 K/uL; INSTRUMENT ABS NEUTROPHIL CT 8.1 K/uL; LYMPHOCYTE COUNT 1.7 K/uL (1.0-2.8); MCH 33.3 PG (29.0-34.0); MCV 98.1 FL (83-99); MEAN PLAT.VOLUME 10.5 uM^3 (9.5-12.4); MONOCYTE (%) 10.7 % (3-12); MONOCYTE COUNT 1.2 K/uL (0-0.8); NEUTROPHIL (%) 72.1 % (45-76); NEUTROPHIL COUNT 8.1 K/uL (1.8-6.4); NRBC (%) 6.6 /100 WBC (0-0); PLATELET COUNT 313 K/uL (156-360); RBC DIS.WIDTH-SD 77.9 % (39-53); WHITE BLOOD COUNT 11.3 K/uL (4.1-10.2)
[2016-12-02 08:40] LABS: ANION GAP 13 MEQ/L (2-14); CHLORIDE 97 MEQ/L (99-109); GFR ESTIMATE (CALCULATED) 10 mL/min/; GLUCOSE 142 mg/dL (70-99); POTASSIUM 3.5 MEQ/L (3.7-5.4); SAMPLE HEMOLYSIS CHECK 0; SAMPLE ICTERIC CHECK 0; SAMPLE LIPEMIA CHECK 0; SODIUM 133 MEQ/L (136-147); UREA NITROGEN (BUN) 40 mg/dL (9-23)
[2016-12-02 16:01] VITALS: BP 128/70
[2016-12-03 00:20] VITALS: BP 142/79
[2016-12-03 07:26] LABS: HEMATOCRIT 22.7 % (36.0-46.0); MCH 32.6 PG (29.0-34.0); MCHC 33.5 G/DL (30.0-36.0); MCV 97.4 FL (83-99); MEAN PLAT.VOLUME 10.7 uM^3 (9.5-12.4); NRBC (%) 14.3 /100 WBC (0-0); PLATELET COUNT 309 K/uL (156-360); RBC DIS.WIDTH-CV 23.3 % (11.8-14.6); RBC DIS.WIDTH-SD 76.1 % (39-53); RED BLOOD COUNT 2.33 M/uL (3.80-5.20); WHITE BLOOD COUNT 9.1 K/uL (4.1-10.2)
[2016-12-03 08:20] VITALS: BP 138/79
[2016-12-03 09:39] LABS: CHLORIDE 98 MEQ/L (99-109); GFR ESTIMATE (CALCULATED) 13 mL/min/; POTASSIUM 3.7 MEQ/L (3.7-5.4); SODIUM 136 MEQ/L (136-147); UREA NITROGEN (BUN) 26 mg/dL (9-23)
[2016-12-03 09:46] LABS: GLUCOSE 88 mg/dL (70-99)
[2016-12-03 16:14] VITALS: BP 134/80
[2016-12-03 21:07] VITALS: BP 130/75
[2016-12-03 23:18] VITALS: BP 135/78
[2016-12-04 04:33] VITALS: BP 130/77
[2016-12-04 08:25] VITALS: BP 157/88
[2016-12-04 08:26] LABS: ANION GAP 14 MEQ/L (2-14); CHLORIDE 97 MEQ/L (99-109); GLUCOSE 95 mg/dL (70-99); SAMPLE HEMOLYSIS CHECK 1; SAMPLE ICTERIC CHECK 0; SAMPLE LIPEMIA CHECK 0; SODIUM 133 MEQ/L (136-147); UREA NITROGEN (BUN) 37 mg/dL (9-23)
[2016-12-04 08:27] LABS: GFR ESTIMATE (CALCULATED) 9 mL/min/; POTASSIUM 4.5 MEQ/L (3.7-5.4)
[2016-12-04 09:03] LABS: HEMATOCRIT 23.7 % (36.0-46.0); MCH 33.5 PG (29.0-34.0); MCHC 34.2 G/DL (30.0-36.0); MCV 97.9 FL (83-99); RBC DIS.WIDTH-CV 23.5 % (11.8-14.6); RED BLOOD COUNT 2.42 M/uL (3.80-5.20)
[2016-12-04 10:31] LABS: PLAT.SUFFICIENCY DECREASED
[2016-12-04 10:43] LABS: PLATELET COUNT 138 K/uL (156-360)
[2016-12-04 17:20] VITALS: BP 124/77
[2016-12-04 23:40] VITALS: BP 126/69
[2016-12-05 07:07] VITALS: BP 144/85
[2016-12-05 10:26] LABS: BASOPHIL COUNT 0.1 K/uL (0-0.1); EOSINOPHIL (%) 1.2 % (0-5); EOSINOPHIL COUNT 0.1 K/uL (0-0.3); HEMATOCRIT 22.2 % (36.0-46.0); IMMATURE GRANULOCYTE (%) 0.6 % (0.0-0.7); IMMATURE GRANULOCYTE COUNT 0.1 K/uL; INSTRUMENT ABS NEUTROPHIL CT 5.7 K/uL; LYMPHOCYTE COUNT 1.4 K/uL (1.0-2.8); MCHC 33.8 G/DL (30.0-36.0); MCV 97.8 FL (83-99); MEAN PLAT.VOLUME 10.3 uM^3 (9.5-12.4); MONOCYTE (%) 13.7 % (3-12); MONOCYTE COUNT 1.1 K/uL (0-0.8); NEUTROPHIL (%) 67.6 % (45-76); NEUTROPHIL COUNT 5.7 K/uL (1.8-6.4); NRBC (%) 9.2 /100 WBC (0-0); RBC DIS.WIDTH-CV 22.7 % (11.8-14.6); RBC DIS.WIDTH-SD 77.9 % (39-53); RED BLOOD COUNT 2.27 M/uL (3.80-5.20); WHITE BLOOD COUNT 8.4 K/uL (4.1-10.2)
[2016-12-05 10:27] LABS: PLATELET COUNT 314 K/uL (156-360)
[2016-12-05 10:53] LABS: ANION GAP 13 MEQ/L (2-14); CHLORIDE 98 MEQ/L (99-109); GLUCOSE 122 mg/dL (70-99); SAMPLE HEMOLYSIS CHECK 0; SAMPLE ICTERIC CHECK 0; SAMPLE LIPEMIA CHECK 0; SODIUM 133 MEQ/L (136-147); UREA NITROGEN (BUN) 52 mg/dL (9-23)
[2016-12-05 10:55] LABS: GFR ESTIMATE (CALCULATED) 7 mL/min/; TOBRAMYCIN (TROUGH) < 0.6 MCG/ML (0-1.0)
[2016-12-05 13:12] LABS: HBSG INDEX 0.19
[2016-12-05 15:28] VITALS: BP 138/85
[2016-12-05 23:41] VITALS: BP 143/78
[2016-12-06 08:15] VITALS: BP 134/80
[2016-12-06 12:55] VITALS: BP 137/82
[2016-12-06 16:20] VITALS: BP 110/62
[2016-12-06 20:12] VITALS: BP 111/66
[2016-12-07 03:13] VITALS: BP 135/78
[2016-12-07 07:13] VITALS: BP 154/92
[2016-12-07 09:51] LABS: EOSINOPHIL (%) 0.9 % (0-5); EOSINOPHIL COUNT 0.1 K/uL (0-0.3); HEMATOCRIT 21.4 % (36.0-46.0); IMMATURE GRANULOCYTE (%) 0.5 % (0.0-0.7); LYMPHOCYTE COUNT 1.8 K/uL (1.0-2.8); MCH 32.9 PG (29.0-34.0); MCHC 33.6 G/DL (30.0-36.0); MCV 97.7 FL (83-99); MEAN PLAT.VOLUME 10.9 uM^3 (9.5-12.4); NEUTROPHIL (%) 62.6 % (45-76); NRBC (%) 4.2 /100 WBC (0-0); PLATELET COUNT 328 K/uL (156-360); RBC DIS.WIDTH-CV 21.9 % (11.8-14.6); RBC DIS.WIDTH-SD 74.8 % (39-53); RED BLOOD COUNT 2.19 M/uL (3.80-5.20)
[2016-12-07 10:18] LABS: ANION GAP 15 MEQ/L (2-14); CHLORIDE 99 MEQ/L (99-109); GLUCOSE 132 mg/dL (70-99); SAMPLE HEMOLYSIS CHECK 0; SAMPLE ICTERIC CHECK 0; SAMPLE LIPEMIA CHECK 1; SODIUM 135 MEQ/L (136-147); UREA NITROGEN (BUN) 43 mg/dL (9-23)
[2016-12-07 10:33] LABS: GFR ESTIMATE (CALCULATED) 9 mL/min/
[2016-12-07 14:03] VITALS: BP 144/84
[2016-12-07 20:07] VITALS: BP 162/85
[2016-12-07 23:17] VITALS: BP 112/61
[2016-12-08 03:26] VITALS: BP 115/67
[2016-12-08 08:29] LABS: EOSINOPHIL (%) 1.4 % (0-5); EOSINOPHIL COUNT 0.1 K/uL (0-0.3); HEMATOCRIT 23.6 % (36.0-46.0); IMMATURE GRANULOCYTE (%) 0.4 % (0.0-0.7); INSTRUMENT ABS NEUTROPHIL CT 4.4 K/uL; LYMPHOCYTE COUNT 1.9 K/uL (1.0-2.8); MCH 32.9 PG (29.0-34.0); MCHC 33.9 G/DL (30.0-36.0); MCV 97.1 FL (83-99); MEAN PLAT.VOLUME 10.2 uM^3 (9.5-12.4); MONOCYTE (%) 12.6 % (3-12); MONOCYTE COUNT 0.9 K/uL (0-0.8); NEUTROPHIL (%) 59.3 % (45-76); NEUTROPHIL COUNT 4.4 K/uL (1.8-6.4); NRBC (%) 4.7 /100 WBC (0-0); PLATELET COUNT 395 K/uL (156-360); RBC DIS.WIDTH-CV 22.5 % (11.8-14.6); RBC DIS.WIDTH-SD 76.3 % (39-53); RED BLOOD COUNT 2.43 M/uL (3.80-5.20); WHITE BLOOD COUNT 7.4 K/uL (4.1-10.2)
[2016-12-08 09:22] LABS: ANION GAP 12 MEQ/L (2-14); CHLORIDE 97 MEQ/L (99-109); GLUCOSE 139 mg/dL (70-99); SAMPLE HEMOLYSIS CHECK 0; SAMPLE ICTERIC CHECK 0; SAMPLE LIPEMIA CHECK 0; SODIUM 135 MEQ/L (136-147); UREA NITROGEN (BUN) 28 mg/dL (9-23)
[2016-12-08 09:25] LABS: GFR ESTIMATE (CALCULATED) 13 mL/min/; POTASSIUM 3.1 MEQ/L (3.7-5.4)
[2016-12-08 12:41] VITALS: BP 122/77
[2016-12-08] MEDS ORDERED: ELIQUIS2.5 MG PO (13:59)
[2016-12-08] MEDS ORDERED: BENADRYL25 MG PO (13:59)
[2016-12-08 16:56] VITALS: BP 125/80
== END 2016-12-08 19:15 | disposition home health service (06) | DRG 871 ==
LOC: EME 22:16 → 2EAST 11-28 07:26 → EDOF 11-28 07:26 → 2EAST 11-28 12:59
PROVIDERS: Emergency Medicine; Hospitalist; Internal Medicine; Internal Medicine Nephrology; Physician Assistant
PROC: 5A1D60Z (ICD-10-PCS; principal; 2016-11-28)
PROC: 30233N1 Transfusion of Nonautologous Red Blood Cells into Peripheral Vein, Percutaneous Approach (ICD-10-PCS; 2016-12-02)
PROC: 0HC5XZZ Extirpation of Matter from Chest Skin, External Approach (ICD-10-PCS; 2016-12-06)
PROC: 06HM03Z Insertion of Infusion Device into Right Femoral Vein, Open Approach (ICD-10-PCS; 2016-12-07)
DX: R78.81 Bacteremia (principal); N18.6 End stage renal disease; L76.32 Postprocedural hematoma of skin and subcutaneous tissue following other procedure; I12.0 Hypertensive chronic kidney disease with stage 5 chronic kidney disease or end stage renal disease; N25.81 Secondary hyperparathyroidism of renal origin; F05 Delirium due to known physiological condition; J90 Pleural effusion, not elsewhere classified; R18.8 Other ascites; D57.1 Sickle-cell disease without crisis; B96.5 Pseudomonas (aeruginosa) (mallei) (pseudomallei) as the cause of diseases classified elsewhere; Z16.29 Resistance to other single specified antibiotic; I87.8 Other specified disorders of veins; E87.5 Hyperkalemia; K21.9 Gastro-esophageal reflux disease without esophagitis; I27.2 Other secondary pulmonary hypertension; M54.5 Low back pain; I36.1 Nonrheumatic tricuspid (valve) insufficiency; I34.0 Nonrheumatic mitral (valve) insufficiency; M85.88 Other specified disorders of bone density and structure, other site; D63.1 Anemia in chronic kidney disease; Z99.2 Dependence on renal dialysis; Z79.01 Long term (current) use of anticoagulants; Z82.49 Family history of ischemic heart disease and other diseases of the circulatory system; Z83.2 Family history of diseases of the blood and blood-forming organs and certain disorders involving the immune mechanism
CPT/HCPCS: 71010; 71275; 72131; 74177; 78102; 78805; 78999; 80047; 80048; 80069; 80170; 80200; 81003; 83605; 84484; 85025; 85025 91; 85027; 85045; 86850; 86900; 86901; 86905; 86920; 87040; 87070; 87075; 87077; 87186; 87205; 87340; 87801; 93005; 93306; 94640; 94799; 99281; 99285; A9541; A9570; C1752; J0881; J1170; J1580; J1644; J2250; J2270; J2405; J2543; J3010; J3260; J7030; J7050; P9040

== ENCOUNTER 2016-12-29 07:56 | Day surgery (SDC) | payer BC, OTHER ==
[~2016-12-29] VITALS: Ht 165.1 cm; Wt 52.2 kg
[~2016-12-29 07:56] MED LIST changes: +BENADRYL25 MG PO
[2016-12-29] MEDS ORDERED: ZOSYN 2.25 GR2.25 GM IV (08:25)
[2016-12-29 09:42] LABS: METH RESISTANT S AUREUS PCR NEGATIVE (NEGATIVE)
[2016-12-29 09:52] LABS: PROBE CHECK PASS; SPECIMEN PROCESSING CONTROL PASS
[2016-12-29 10:12] LABS: BASE EXCESS 5.2 mEq/L (-3 to +3); BICARBONATE 30.4 mEq/L (22-26); CARBOXY HGB 4.7 % (0-5); METHEMOGLOBIN 1.7 % (0-1.5); PCO2 48 mm Hg (35-45); PO2 66 mm Hg (80-100); pH 7.41 (7.35-7.45)
[2016-12-29 10:13] LABS: COMMENTS - BLOOD GASES FEMORAL ART.; SITE CATH.LAB
[2016-12-29 10:15] LABS: BASE EXCESS 7.4 mEq/L (-3 to +3); BICARBONATE 31.1 mEq/L (22-26); CARBOXY HGB 4.6 % (0-5); METHEMOGLOBIN 1.5 % (0-1.5); PCO2 39 mm Hg (35-45); PO2 103 mm Hg (80-100); pH 7.51 (7.35-7.45)
[2016-12-29 10:16] LABS: COMMENTS - BLOOD GASES PCWP SAMPLE; SITE CATH.LAB
[2016-12-29 10:19] LABS: BASE EXCESS 7.5 mEq/L (-3 to +3); CARBOXY HGB 4.4 % (0-5); COMMENTS - BLOOD GASES RA SAMPLE.; METHEMOGLOBIN 1.6 % (0-1.5); PCO2 52 mm Hg (35-45); PO2 30 mm Hg (80-100); SITE CATH.LAB; pH 7.41 (7.35-7.45)
[2016-12-29 10:22] LABS: BASE EXCESS 6.9 mEq/L (-3 to +3); BICARBONATE 31.9 mEq/L (22-26); CARBOXY HGB 4.7 % (0-5); METHEMOGLOBIN 1.5 % (0-1.5); PCO2 48 mm Hg (35-45); PO2 33 mm Hg (80-100); SITE CATH.LAB; pH 7.43 (7.35-7.45)
[2016-12-29 10:23] LABS: COMMENTS - BLOOD GASES PA SAMPLE
[2016-12-29 10:25] LABS: BASE EXCESS 6.6 mEq/L (-3 to +3); BICARBONATE 31.8 mEq/L (22-26); COMMENTS - BLOOD GASES RV SAMPLE; METHEMOGLOBIN 1.4 % (0-1.5); PCO2 49 mm Hg (35-45); PO2 31 mm Hg (80-100); SITE CATH.LAB; pH 7.42 (7.35-7.45)
[2016-12-29 10:42] LABS: BASE EXCESS 6.1 mEq/L (-3 to +3); BICARBONATE 31.6 mEq/L (22-26); CARBOXY HGB 4.7 % (0-5); COMMENTS - BLOOD GASES LOW RA; METHEMOGLOBIN 1.7 % (0-1.5); PCO2 51 mm Hg (35-45); PO2 31 mm Hg (80-100); SITE CATH.LAB
[2016-12-29 10:45] LABS: BASE EXCESS 6.6 mEq/L (-3 to +3); BICARBONATE 32.4 mEq/L (22-26); COMMENTS - BLOOD GASES SVC SAMPLE; PCO2 50 mm Hg (35-45); PO2 31 mm Hg (80-100); SITE CATH.LAB; pH 7.42 (7.35-7.45)
[2016-12-29 13:07] VITALS: BP 138/67
== END 2016-12-29 18:23 | disposition home or self-care (01) ==
LOC: CATH 07:56
PROVIDERS: Internal Medicine Interventional Cardiology
PROC: 4A023N8 Measurement of Cardiac Sampling and Pressure, Bilateral, Percutaneous Approach (ICD-10-PCS; principal; 2016-12-29)
PROC: B2111ZZ Fluoroscopy of Multiple Coronary Arteries using Low Osmolar Contrast (ICD-10-PCS; principal; 2016-12-29)
DX: I12.0 Hypertensive chronic kidney disease with stage 5 chronic kidney disease or end stage renal disease (principal); N18.6 End stage renal disease; R06.02 Shortness of breath; D57.1 Sickle-cell disease without crisis; Z99.2 Dependence on renal dialysis
CPT/HCPCS: 36600; 82803; 87641; C1769; C1887; C1894; J1644; J2250; J3010